=== PATIENT | female | born 1985 ===

== ENCOUNTER 2018-05-13 23:16 | Emergency (ER) | payer OTHER ==
[2018-05-13 23:37] VITALS: RESP 18
--- NOTE | 2018-05-13 23:42 | C.PDOC ---
History Of Present Illness Patient presents to the ER with a complaint of left chest wall pain that is reproducible on palpation. Patient states she feels like she cannot take a deep breath. She is currently speaking in complete sentence. Denies trauma, fever, chills, nausea, or vomiting. Time Seen by Provider: 05/13/18 23:42 Chief Complaint (Nursing): Chest Pain History Per: Patient History/Exam Limitations: no limitations Onset/Duration Of Symptoms: Hrs Current Symptoms Are (Timing): Still Present Severity: Moderate Pain Scale Rating Of: 4 Associated Symptoms: denies: Other (Fever, Chills, Nausea, Vomiting) Exacerbating Factors: Other (Palpation) Alleviating Factors: None Recent travel outside of the [place]: No Past Medical History Reviewed: Historical Data, Nursing Documentation, Vital Signs Vital Signs: Last Vital Signs Temp 97.9 F 05/13/18 23:32 Pulse 74 05/13/18 23:32 Resp 18 05/13/18 23:32 BP 141/90 05/13/18 23:32 Pulse Ox 100 05/13/18 23:32 Family History: States: No Known Family Hx - Social History Hx Tobacco Use: No Hx Alcohol Use: No Hx Substance Use: No - Immunization History Hx Tetanus Toxoid Vaccination: No Hx Influenza Vaccination: Yes Hx Pneumococcal Vaccination: No Review Of Systems Constitutional: Negative for: Fever, Chills Cardiovascular: Negative for: Chest Pain, Palpitations Respiratory: Negative for: Cough, Shortness of Breath Gastrointestinal: Negative for: Nausea, Vomiting Musculoskeletal: Positive for: Other (Left chest wall pain reproducible on palpation) Skin: Negative for: Rash Physical Exam - Physical Exam Appears: Non-toxic Skin: Warm, Dry Head: Normacephalic Oral Mucosa: Moist Neck: Trachea Midline, Supple Chest: Symmetrical, Tenderness (Left sided reproducible) Cardiovascular: Rhythm Regular Respiratory: No Rales, No Rhonchi, No Wheezing Gastrointestinal/Abdominal: Soft, No Tenderness Neurological/Psych: Oriented x3 ED Course And Treatment - Laboratory Results Result Diagrams: 05/14/18 00:10 05/14/18 00:10 ECG: Interpreted By Me, Viewed By Me ECG Rhythm: Sinus Rhythm (70), Nonspecific Changes O2 Sat by Pulse Oximetry: 100 (Room air) Pulse Ox Interpretation: Normal - Radiology CXR: Interpreted by Me, Viewed By Me Progress Note: Blood work, EKG, and urinalysis ordered. Reevaluation Time: 02:38 Reassessment Condition: Improved Disposition Counseled Patient/Family Regarding: Studies Performed, Diagnosis, Need For Followup, Rx Given - Disposition Referrals: [facility] [Outside] Disposition: HOME/ ROUTINE Disposition Time: 23:42 Condition: FAIR Additional Instructions: Please return if symptoms recur Prescriptions: Albuterol HFA [Ventolin HFA 90 mcg/actuation (8 g)] 2 puff IH [id number] #1 puff Naproxen [Naprosyn] 1 tab PO BID PRN #25 tab PRN Reason: Pain Instructions: Costochondritis (DC) Forms: [employer] (Greek) Print Language: DUTCH - Clinical Impression Clinical Impression: Costochondral chest pain - Scribe Statement The provider has reviewed the documentation as recorded by the Scribkristen Morgan All medical record entries made by the Scribe were at my direction and personally dictated by me. I have reviewed the chart and agree that the record accurately reflects my personal performance of the history, physical exam, medical decision making, and the department course for this patient. I have also personally directed, reviewed, and agree with the discharge instructions and disposition.
[2018-05-14 00:20] LABS: BASO # 0.1 K/uL (0.0-0.2); BASO % 0.5 % (0.0-2.0); EOS # 0.1 K/uL (0.0-0.7); EOS % 1.1 % (0.0-4.0); LYMPH # 2.4 K/uL (1.0-4.3); LYMPH % 20.3 % (20.0-40.0); MEAN CELL VOLUME 83.3 fL (81.0-99.0); MEAN CORPUSCULAR HEMOGLOBIN 27.7 pg (27.0-31.0); MEAN CORPUSCULAR HGB CONC 33.2 g/dL (33.0-37.0); MEAN PLATELET VOLUME 9.4 fL (7.2-11.7); MONO # 0.7 K/uL (0.0-0.8); NEUT # 8.4 K/uL (1.8-7.0); NEUT % 72.1 % (50.0-75.0); RBC 4.72 Mil/uL (3.80-5.20); RED CELL DISTRIBUTION WIDTH 13.5 % (11.5-14.5); WHITE BLOOD COUNT 11.6 K/uL (4.8-10.8)
[2018-05-14 00:21] LABS: ARTERIAL BLOOD GAS HCO3 25.6 mmol/L (21-28); ARTERIAL BLOOD GAS O2 SAT 97.8 % (95-98); ARTERIAL BLOOD GAS PCO2 24 mm/Hg (35-45); ARTERIAL BLOOD GAS PH 7.56 (7.35-7.45); ARTERIAL BLOOD GAS PO2 129 mm/Hg (80-100); ARTERIAL BLOOD GAS TCO2 22.2 mmol/L (22-28)
[2018-05-14 00:27] LABS: SQUAMOUS EPITHIAL 3 /hpf (0-5); URINE BACTERIA RARE (<OCC); URINE BILIRUBIN NEGATIVE (NEGATIVE); URINE BLOOD 1+ (NEGATIVE); URINE CLARITY Clear (Clear); URINE COLOR Yellow (YELLOW); URINE GLUCOSE (UA) NORMAL (Normal); URINE LEUKOCYTE ESTERASE NEG Leu/uL (Negative); URINE PROTEIN NEGATIVE (NEGATIVE); URINE UROBILINOGEN NORMAL mg/dL (0.2-1.0)
[2018-05-14 00:34] LABS: ALB/GLOB RATIO 1.5 (1.0-2.1); ALBUMIN 4.8 g/dL (3.5-5.0); ALT/SGPT 23 U/L (9-52); AST/SGOT 19 U/L (14-36); BLOOD UREA NITROGEN 14 mg/dL (7-17); CALCIUM 9.5 mg/dl (8.6-10.4); GFR NON-AFRICAN AMERICAN > 60
[2018-05-14 00:46] LABS: B-TYPE NATRIURETIC PEPTIDE 34.5 pg/mL (0-450)
[2018-05-14 00:50] LABS: INR 1.1; PROTHROMBIN TIME 11.9 SECONDS (9.7-12.2)
[2018-05-14] MEDS ORDERED: Iodixanol 320 MG/ML 100 ML BOTTLE IV ONE (01:08)
[2018-05-14 03:02] VITALS: BP 127/81; PULSE 80; TEMP 98.1; O2SAT 99
--- NOTE | 2018-05-14 08:27 | CT ---
Date of service: 05/14/2018 PROCEDURE: CT Chest with contrast (Pulmonary Angiogram) HISTORY: sob, elevated d dimer COMPARISON: None available. TECHNIQUE: Axial computed tomography images were obtained of the chest in the pulmonary arterial phase of enhancement. Coronal and sagittal reformatted images were created and reviewed. Intravenous contrast dose: Radiation dose: Total exam DLP = 404.25 mGy-cm. This CT exam was performed using one or more of the following dose reduction techniques: Automated exposure control, adjustment of the mA and/or kV according to patient size, and/or use of iterative reconstruction technique. FINDINGS: PULMONARY ARTERIES: There are no filling defects in the pulmonary arteries to suggest acute pulmonary embolism. AORTA: No acute findings. No thoracic aortic aneurysm. No aortic atherosclerotic calcification or mural plaque present. LUNGS: The lungs are well inflated and clear. No nodule, mass or pulmonary consolidation. PLEURAL SPACES: No effusion or pneumothorax. HEART: No cardiomegaly. No significant pericardial effusion. LYMPH NODES: No pathologic mediastinal or hilar lymphadenopathy. BONES, CHEST WALL: Within normal limits for the patient's age. No fracture or destructive lesion OTHER FINDINGS: None. IMPRESSION: No CTA evidence for acute pulmonary embolism. Clear lungs. A preliminary report was provided by [employer].
--- NOTE | 2018-05-17 19:06 | CARD ---
APPROVED REPORT Date of service: 05/13/2018 EKG Measurement Heart [id number] <Conclusion> Normal sinus rhythm Normal ECG
== END 2018-05-14 03:01 | disposition home or self-care (01) ==
LOC: C.ER 23:16 → SUPCPDRO 23:16 → C.ER 05-14 03:01
DX: R07.89 Other chest pain (principal)
CPT/HCPCS: 71275; 80053; 81001; 82803; 83880; 84484; 84703; 85025; 85378; 85610; 85730; 93005; 96374; 99284; J1885; Q9967